=== PATIENT | male | born 1980 | race Caucasian/White ===

== ENCOUNTER 2017-02-14 09:55 | Emergency (ER) | payer MEDICAID, OTHER ==
[2017-02-14] MEDS ORDERED: DIAZEPAM 10 MG/2 ML SYR IVP ONE (11:43)
[2017-02-14] MEDS ORDERED: KETOROLAC 15 MG/1 ML SDV ONE (13:26)
--- NOTE | 2017-02-14 14:56 | EDPHY ---
H & P Smoking Status: Never smoked Time Seen by Provider: 02/14/17 10:55 HPI/ROS: CHIEF COMPLAINT: Back pain, groin pain, weakness legs HISTORY OF PRESENT ILLNESS: 36-year-old male presents to the emergency department by private vehicle complaining of back pain over the last 3 or 4 days. Patient states that he was traveling over the last 2 days and feels that he has somehow aggravated his low back. He is also having pain in his groin. He states today he developed more difficulty walking because of the pain in his back. Denies urinary symptoms. Denies paresthesias in his upper or lower extremities. Denies abdominal pain. Denies neck pain. Denies chest pain or difficulty breathing. He has taken occasional ibuprofen for last couple of days. REVIEW OF SYSTEMS: Constitutional: No fever, no chills. Eyes: No double or blurry vision. ENT: No sore throat. Respiratory: No cough, no shortness of breath. Cardiac: No chest pain. Gastrointestinal: No abdominal pain, vomiting or diarrhea. Genitourinary: No dysuria. Musculoskeletal: Back pain as above. No neck pain. Skin: No rashes. Neurological: No headache. 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 Eyes: Pupils equal and round. Extraocular motions are all intact. ENT: Mouth: Mucous membranes moist. Respiratory: No wheezing, rhonchi, or rales, lungs are clear to auscultation. Cardiovascular: Regular rate and rhythm. Gastrointestinal: Abdomen is soft and nontender, no masses, no rebound or guarding, bowel sounds normal. Neurological: Alert and oriented x 3, cranial nerves II through XII grossly intact Skin: Warm and dry, no rashes. Musculoskeletal: Nontender to palpate along cervical or thoracic spine. Neck is supple. He has mild pain with palpation especially to the left lateral aspect of his lumbar spine. No palpable crepitus or other bony abnormality. Genitourinary: Uncircumcised penis. No palpable inguinal hernia. No bulge. Extremities: Decreased range of motion of the left lower extremity. He has pain with lifting his left leg. However when I have able to do this passively, he has no pain. Full range of motion of the right lower extremity. His reflexes are 2+ and equal for the lower extremities bilaterally. Psychiatric: Patient is oriented X 3, there is no agitation. (Iliana Carreon) Constitutional: Initial Vital Signs Temperature (C) 36.5 C 02/14/17 09:58 Heart Rate 96 02/14/17 09:58 Respiratory Rate 16 02/14/17 09:58 Blood Pressure 124/82 H 02/14/17 09:58 O2 Sat (%) 99 02/14/17 09:58 O2 Delivery Mode Room Air Allergies/Adverse Reactions: No Known Allergies Allergy (Verified 02/14/17 09:57) Home Medications: Medication Instructions Recorded lamoTRIgine [LamICTAL 100 MG (RX)] 150 mg PO DAILY 04/12/12 Cyclobenzaprine [Flexeril] 10 mg PO TIDPRN PRN #12 tab 02/14/17 Medical Decision Making ED Course/Re-evaluation: 36-year-old male presents to the emergency department with low back pain and difficulty walking. The patient states that he feels weakness in his legs because of the pain in his back. Given the patient's symptoms, MRI of the lumbar spine was ordered which revealed no evidence of disc herniation, cord injury or cauda equina. Urinalysis reveals no signs of infection. The patient was initially given IV Valium and was also given IV Dilaudid for pain. The patient was able to move a bit more freely and was less pain after the medication was given to him. I do not think this patient needs admission to the hospital. I do not think further imaging studies are necessary. Patient was reassured that his MRI was normal. I did however encouraged close follow-up with primary care provider tomorrow or Samuel to recheck. The patient has no bowel or bladder incontinence. He was instructed to return to the emergency department if he had any other madsen in symptoms or if he felt worse in any way. The patient was able to ambulate to the bathroom unassisted. (Iliana Carreon) I did not see this patient while he was in the emergency department. However his care was discussed with the PA while the patient was in the department. I agree with treatment plan and management (Moreno Chin) Differential Diagnosis: Back pain including but not limited to muscular pain, herniated disc, spine fracture, intra-abdominal causes and urinary tract infection. (Iliana Carreon) - Data Points Medications Given: Discontinued Medications Diazepam (Valium Injection) 5 mg IVP EDNOW ONE Stop: 02/14/17 11:44 Last Admin: 02/14/17 12:18 Dose: 5 mg Departure - Departure Disposition: Home, Routine, Self-Care Clinical Impression: Low back pain Condition: Good Instructions: Back Pain (ED) Additional Instructions: Flexeril as directed for muscular spasm. Ibuprofen 600 mg every 8 hours as needed for pain. Follow-up with primary care provider the tomorrow or Sunday to recheck. Return to the emergency department sooner if you develop any other change in symptoms or if you feel worse in any way. Referrals: Pee Motta MD [Primary Care Provider] - 1-2 days without fail Prescriptions: Cyclobenzaprine [Flexeril] 10 mg PO TIDPRN PRN #12 tab PRN Reason: Spasms
[2017-02-14 15:12] VITALS: BP 126/76; PULSE 70; RESP 14; TEMP 98.4; O2SAT 94
== END 2017-02-14 15:10 | disposition home or self-care (01) ==
DX: M54.5 Low back pain (principal)
CPT/HCPCS: 96374; J1885